=== PATIENT | female | born 1965 | race Asian ===

== ENCOUNTER 2024-01-17 12:25 | Inpatient (IN) | payer OTHER, SELFPAY ==
--- OUTSIDE RECORDS SUMMARY | 2024-01-17 12:28 | XMS_ITS ---
Author Organization [facility] Address [address] [place] [id number] Care Team Providers Care Cad Manager Name Role Phone Tod Sheila Primary Care Provider [phone] Opal Gramajo Unavailable [phone] REASON FOR VISIT Outreach: ER Social History Sex Assigned At : Social History Observation Description Sex Assigned At Female Encounters Encounter Location Date Provider Diagnosis [address] [id number] 01/16/2024 Sheila Baron Plan Of Treatment Next Appt Details Provider Name:Marilyn Elizalde, 01/25/2024 09:30:00 AM, [address] [place] [address], [phone], Provider Name:Sheila Baron, 11:30:00 AM, [address] [place] [address], [phone], Provider Name:Sheila Baron, 11:30:00 AM, [address] [place] [address], [phone], Provider Name:Rogerio Alford, 06/16/2024 10:00:00 AM, [address] [place] [address], [phone], Progress Notes * BASILIO LOOB:1965 (58 yo F)Acc No.[id number]:01/16/2024 Patient:?YARITZA LO :1965???Age:58 Y???Sex:Female Address:[address] [place] [address], [facility], [place], [address] * * Date:?
--- OUTSIDE RECORDS SUMMARY | 2024-01-17 12:29 | XMS_ITS ---
Author Organization [facility] Address [address], [place] [id number] Care Team Providers Care Instrumentation Designer Name Role Phone Sheila Baron Primary Care Provider Opal Gramajo Unavailable [phone] Tonio Marilyn Unavailable [phone] Allergies No Known Allergies REASON FOR VISIT 2 wk f/u Medications Medication SIG (Take, Route, Frequency, Duration) Notes Start Date End Date Status capsaicin topical 0.025% 1 kym applied topically 3 times a day 11/03/2013 Unknown escitalopram 5 mg 1 tab(s) orally once a day for 30 days 01/09/2024 Active Calcium + Vitamin D 600mg/400 units 1 tab po BID (use after meals) Unknown Tums 500 mg 1 tab(s) chewed once or twice a day 12/05/2017 Unknown triamcinolone topical 0.1% 1 kym applied topically 3 times a day 09/06/2015 Unknown Z-david 5 days (Azithromycin) 2 tabs day#1, then 1 tab daily days #2-5 PO for 5 days 04/11/2021 Not-Taking mirtazapine 7.5 mg 1 tab(s) orally once a day (at bedtime) for 90 days 09/22/2021 Not-Taking Lidocaine Hydrochloride, Topical 5% 1 kym applied topically 3 times a day 07/06/2014 Unknown Tussin DM 20 mg-200 mg/10 mL 10 mL orally every 6 hours 04/11/2021 Not-Taking Abilify 5 mg 1 tab(s) orally once a day for 30 days Active omeprazole 20 mg 1 cap(s) orally Jose Ramon y for 90 days Active Artificial Tears preserved 1 gtt in each eye 4 times a day Active TraZODone Hydrochloride 50 mg 1 tab(s) orally daily at bedtime for 90 days Not-Takin g FLUoxetine 20 mg 1 cap(s) orally once a day for 90 days Not-Taking calcium-vitamin D 600 mg-10 mcg 1 tab(s) orally twice a day for 90 days Active Vitamin D3 25 mcg 1 cap(s) orally once a day for 90 days 05/15/2022 Active Loratadine-D 24 Hour 10 mg-240 mg 1 tab(s) orally once a day 04/11/2021 Active acetaminophen 500 mg 2 tab(s) orally ricco ry 6 hours, prn Active multivitamin Multiple Vitamins 1 tab(s) orally once a day for 90 days 11/17/2013 Active Fish Oil 1000 mg 1 cap(s) orally once a day for 90 days 11/14/2021 Active ocular lubricant - 1 kym in each affect ed eye 4 times a day 07/20/2022 Active Social History Sex Assigned At : Social History Observation Description Sex Assigned At Female Encounters Encounter Location Date Provider Diagnosis [address] [id number] 01/09/2024 Marilyn Elizalde Adjustment disorder with mixed anxiety and depressed mood F43.23 Assessments Encounter Date Diagnosis (ICD Code) Assessment Notes Treatment Notes Treatment Clinical Notes 01/09/2024 Adjustment disorder with mixed anxiety and depressed mood (ICD-10 - F43.23) will increase abilify from 4 to 5mg will start lexapro 5mg daily for mood Risks vs benefits discussed, patient expressed verbal understanding and is in agreement with treatment plan. Plan Of Treatment Medication Medication Name Sig Start Date Stop Date Notes escitalopram 5 mg 1 tab(s) orally once a day for 30 days 1 03/11/2023 Abilify 5 mg 1 tab(s) orally once a day for 30 days Treatment Notes Assessment Notes Adjustment disorder with mix ed anxiety and depressed mood will increase abilify from 4 to 5mg will start lexapro 5mg daily for mood Risks vs benefits discussed, patient expressed verbal understanding and is in agreement with treatment plan. Next Appt Details Follow Up: 2 Weeks, Reason: Provider Name:Marilyn Elizalde, 01/25/2024 09:30:00 AM, [address] [place] [address], [phone], Provider Name:Sheila Baron, 11:30:00 AM, [address] [place] [address], [phone], Provider Name:Sheila Baron, 11:30:00 AM, [address] [place] [address], [id number], Provider Name:Rogerio Alford, 06/16/2024 10:00:00 AM, [address] [place] [address], [phone], Progress Notes * BASILIO LOOB:1965 (58 yo F)Acc No.[id number]:01/09/2024 Telehealth Patient:?YARITZA LO ??External /[id number]* Provider:?Marilyn Elizalde Mariely CHIEF ESTIMATOR-BC :1965???Age:58 Y???Sex:Female D ate:01/09/2024 ?[facility]#:[id number] Address:[address] [place], [place] [id number] Pcp:Sheila Baron Patient's Default Facility:[facility] Subjective: * Chief Complaints: * ???1. 2 wk f/u. * HPI: ???Follow-up:? Patient is a 58-year old Toisanese-speaking female presenting for psychiatric f/u with chief concerns of low mood. Referred by PCP, Sheila Baron NP. Previously?seen by this clinician in 2021 for depressive sx's. 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 ???Past Psychiatric History:?previously seen by this clinician in 2021 inadequate trials of mirtazapine and fluoxetine. ???Family and Social History::? Patient is currently living with her . She has 1 son in [place] and 2 daughters here in their 30s. She has 2 grandchildren, oldest is 9 yrs. Pt has multiple siblings living in [place], unable to describe further details Pt has some relatives in the area- sister in law Came to [place] over 10 yrs ago, has [employer] Occupation: unemployed Education: unknown Source of support: none [employer]itan: none Denied any history of emotional, sexual, or physical abuse. ???Substance Abuse::?Is alcohol and/or drugs currently problem for patient?Substance abuse problem??No.? Denied any caffeine, alcohol, tobacco, marijuana, or illicit substance use. ???Medical History:? none. * ROS:?ROS Behavioral Health:?Constitutional?none.?Eyes?none.?Ears, Nose, Mouth, & T hroat?none.?Cardiovascular?none.?Respiratory?none.?Genitourinary?none.?Skin?none .?Endocrine?none.?Hematologic/Lymphatic?no ne.?Allergic/Immunologic?none.?Neurological?none.?Psychiatric?see HPI.?Musculoskeletal?none.? 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 * Medications:?Taking Abilify 2 mg tablet 1 tab(s) orally once a day , Taking ocular lubricant - gel 1 kym in each affected eye 4 times a day , Taking Loratadine-D 24 Hour 10 mg-240 mg tablet, extended release 1 tab(s) orally once a day , Taking Vitamin D3 25 mcg capsule 1 cap(s) orally once a day , Taking multivitamin Multiple Vitamins tablet 1 tab(s) orally once a day , Taking acetaminophen 500 mg tablet 2 tab(s) orally every 6 hours, prn , Taking Fish Oil 1000 mg capsule 1 cap(s) orally once a day , Taking calcium-vitamin D 600 mg-10 mcg tablet 1 tab(s) orally twice a day , Taking Artificial Tears preserved solution 1 gtt in each eye 4 times a day , Taking omeprazole 20 mg delayed release capsule 1 cap(s) orally Daily , Not- Taking FLUoxetine 20 mg capsule 1 cap(s) orally once a day , Not-Taking TraZODone Hydrochloride 50 mg tablet 1 tab(s) orally daily at bedtime , Not-Taking mirtazapine 7.5 mg tablet 1 tab(s) orally once a day (at bedtime) , Not-Taking Z-david 5 days (Azithromycin) 250mg 2 tabs day#1, then 1 tab daily days #2-5 PO , Not-Taking Tussin DM 20 mg-200 mg/10 mL liquid 10 mL orally every 6 hours , Unknown Lidocaine Hydrochloride, Topical 5% ointment 1 kym applied topically 3 times a day , Unknown capsaicin topical 0.025% cream 1 kym applied topically 3 times a day , Unknown triamcinolone topical 0.1% cream 1 kym applied topically 3 times a day , Unknown Tums 500 mg tablet, chewable 1 tab(s) chewed once or twice a day , Unknown Calcium + Vitamin D 600mg/400 units tablet 1 tab po BID (use after meals) , Medication List reviewed and reconciled with the patient * Allergies:?N.K.D.A. Objective: * Vitals:? * Examination: ???Mental Status Exam: ?BEHAVIOR:? appropriate.?DISORIENTATION:? none.?MOOD/AFFECT:?dysthymic.?SPEECH:?normal pace, normal volume.?THOUGHT PROCESSES:? perseverative.?THOUGHT CONTENT:?appropriate.?INSIGHT/JUDGEMENT? minimal.?MEMORY PROBLEMS:?intact.?SUICIDAL IDEATION:? denied.?HOMICIDAL IDEATION:? denied.?Telehealth Virtual Visit: ?Telehealth Patient Virtual Visit?.?Attestation Statement? This is health visit performed via telephone, using InVision, at [facility]. The patient was treated with the same standard of care as an in-person visit, and was informed of their right to see a clinician in person in the event of an emergency or if otherwise needed.I introduced and identified myself, received verbal consent from the patient to proceed with this telephone visit and made the patient aware that the same confidentiality and information security risk analyst practices apply. .? * Physical Examination:? Assessment: * Assessment: 1.?Adjustment disorder with mixed anxiety and depressed mood - F43.23 (Primary)??? Patient is a 58-year old Osvaldo sanese-speaking female presenting for psychiatric f/u with chief concerns of low mood. Referred by PCP, Sheila Baron NP. Previously seen by this clinician in 2021 for depressive sx's. Patient has no known biological predisposition to mental illness. Pt presents to again for depressive sx's, unclear what precipitated this episode. Today pt continues to endorse depressive symptoms, has not had adequate trial of antidepressant medication. Ongoing stressors include lack of daily structure. Protective factors include supportive family and patient's willingness to engage with clinician. Barriers to treatment: Low literacy on mental illness Risk factors: hx of depression Strengths: Motivated to seek help Weaknesses: Acculturation issues Plan: * Treatment: * Procedure Codes:?G0470 (TEL) [facility] visit, mental health, est pat, Modifiers: 95 , 22627 (TEL) Med Mgt 20-29 min VV, Modifiers: 95 * Follow Up:?2 Weeks * Billing Information: * Visit Code:? * Procedure Codes:? G0470 (TEL) [facility] visit, mental health, est pat. Modifiers: 95 90998 (TEL) Med Mgt 20-29 min VV. Modifiers: 95 * Sign off status: Completed true * Provider:?Marilyn Elizalde [facility] ISAIAH-BC Date:? 01/09/2024 Generated for Dee fatima/Ashley/eTransmitting on:?01/17/2024 12:29 PM EST History and Physical Notes * HPI (History of Present Illness) Category Sub-Category Detail Notes Substance Abuse: Is alcohol and/or dr pearl currently problem for patient Substance abuse problem?: No Examination Category Sub-Category Detail Notes Mental Status Exam APPEARANCE: BEHAVIOR: appropriate INSIGHT/JUDGEMENT minimal MOOD/AFFECT: dysthymic SPEECH: normal pace, normal volume THOUGHT PROCESSES: perseverative MEMORY PROBLEMS: intact THOUGHT CONTENT: appropriate DISORIENTATION: none SUICIDAL IDEATION: denied HOMICIDAL IDEATION: denied Telehealth Virtual Visit Telehealth Bia ent Virtual Visit Patient Name, , and and ID Verified: Yes Provider Disclosed and Validated Identit y and Credentials: Yes Reviewed Relevant medical History With P atient: Yes Verified Ability To Deliver Appropriate Standard of Care: Yes Informed Patient of Any Relevant Privacy Considerations: Yes Followed Consent and Patient Information Protocols: Yes Location Verified: Yes ?Provider Location: [address] ?Patient Location: Home Informed Patient of Option t o See in-person Clinician as Needed or in-Case of Emergency: Yes Attestation Statement This is health visit performed via telephone, using InVision, at [facility]. The patient was treated with the same standard of care as an in-person visit, and was informed of their right to see a clinician in person in the event of an emergency or if otherwise needed. I introduced and identified myself, received verbal consent from the patient to proceed with this telephone visit and made the patient aware that the same confidentiality and information security risk analyst practices apply.
--- OUTSIDE RECORDS SUMMARY | 2024-01-17 12:29 | XMS_ITS ---
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 4 times a day Active omeprazole 20 mg 1 cap(s) orally Jose Ramon y for 90 days Active FLUoxetine 20 mg 1 cap(s) orally once a day for 90 days Not-Taking Fish Oil 1000 mg 1 cap(s) orally once a day for 90 days 11/14/2021 Active calcium-vitamin D 600 mg-10 mcg 1 tab(s) orally twice a day for 90 days Active multivitamin Multiple Vitamins 1 tab(s) orally once a day for 90 days 11/17/2013 Active acetaminophen 500 mg 2 tab(s) orally ricco ry 6 hours, prn Active ocular lubricant - 1 kym in each affect ed eye 4 times a day 07/20/2022 Active Loratadine-D 24 Hour 10 mg-240 mg 1 tab(s) orally once a day 04/11/2021 Active Vitamin D3 25 mcg 1 cap(s) orally once a day for 90 days 05/15/2022 Active Abilify 5 mg 1 tab(s) orally once a day for 30 days Active escitalopram 5 mg 1 tab(s) orally once a day for 30 days 01/09/2024 Active triamcinolone topical 0.1% 1 kym applied topically 3 times a day 09/06/2015 Unknown Tums 500 mg 1 tab(s) chewed once or twice a day 12/05/2017 Unknown Calcium + Vitamin D 600mg/400 units 1 tab po BID (use after meals) Unknown capsaicin topical 0.025% 1 kym applied topically 3 times a day 11/03/2013 Unknown mirtazapine 7.5 mg 1 tab(s) orally once a day (at bedtime) for 90 days 09/22/2021 Not-Taking Z-david 5 days (Azithromycin) 2 tabs day#1, then 1 tab daily days #2-5 PO for 5 days 04/11/2021 Not-Taking Tussin DM 20 mg-200 mg/10 mL 10 mL orally every 6 hours 04/11/2021 Not-Taking Lidocaine Hydrochloride, Topical 5% 1 kym applied topically 3 times a day 07/06/2014 Unknown TraZODone Hydrochloride 50 mg 1 tab(s) orally daily at bedtime for 90 days Not-Takin g Social History Sex Assigned At : Social History Observation Description Sex Assigned At Female Encounters Encounter Location Date Provider Diagnosis [address] [id number] 01/15/2024 Sheila Baron Pain in unspecified knee M25.569 and Other fatigue R53.83 Assessments Encounter Date Diagnosis (ICD Code) Assessment Notes Treatment Notes Treatment Clinical Notes 01/15/2024 Pain in unspecified knee (ICD-10 - M25.569) Patient again declines to come in for examination in person. 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 Discussed treatment with PT for knee strengthening exercises and gait retraining; patient declines stating that she does not have the ability to do PT. Discussed option to see ortho for consult; patient declines stating at she does not know where the department or hospital is although she went for ER. Patient is hesistant towards treatment option plans. Discussed to rtc if she does want treatment. 01/15/2024 Other fatigue (ICD-10 - R53.83) Again fatigue most likely from psych etiology. Reassured patient that lab findings were normal and examination was normal in ER. Recommend to continue BH consult. Pending f/u 01/25/2024. Pending Cardiology consult 02/202401/15/2024 Other Recommended deshaun t patient include family = husbsand and daughter in on her care as she is refusing everything d/t limited knowledge of the hospital areas and keeps stating that she is unable to go by herself d/t fatigue. Plan Of Treatment Treatment Notes Assessment Notes Pain in unspecified knee Patient again d eclines to come in for examination in person. 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 Discussed treatment with PT for knee strengthening exercises and gait retraining; patient declines stating that she does not have the ability to do PT. Discussed option to see ortho for consult; patient declines stating at she does not know where the department or hospital is although she went for ER. Patient is hesistant towards treatment option plans. Discussed to rtc if she does want treatment. Other fatigue Again fatigue most l ikely from psych etiology. Reassured patient that lab findings were normal and examination was normal in ER. Recommend to continue BH consult. Pending f/u 01/25/2024. Pending Cardiology consult 02/2024 Other Recommended that pat ient include family = husbsand and daughter in on her care as she is refusing everything d/t limited knowledge of the hospital areas and keeps stating that she is unable to go by herself d/t fatigue. Next Appt Details Follow Up: prn, Reason: Provider Name:Marilyn Elizalde, 01/25/2024 09:30:00 AM, [address] [place] [address], [phone], Provider Name:Sheila Baron, 11:30:00 AM, [address] [place] [address], [phone], Provider Name:Sheila Baron, 11:30:00 AM, [address] [place] [address], [phone], Provider Name:Rogerio Alford, 06/16/2024 10:00:00 AM, [address] [place] [address], [phone], Progress Notes * BASILIO LOOB:1965 (58 yo F)Acc No.[id number]:01/15/2024 Telehealth Patient:?YARITZA LO ??External /[id number]* Provider:?Sheila Baron NP :1965???Age:58 Y???Sex:Female D ate:01/15/2024 ?CHN#:[id number] Address:[address] [place], [place] [id number] Patient's Default Facility:[facility] Subjective: * Chief Complaints: * ???Weakness * HPI: ???General Visit:? 58 y/o female presents today with ongoing fatigue/weakness. Patient with severe MDD, insomnia previously presented multiple times with similar symptoms resulting in pending cardiology consultation 02/2024. She reports that symptoms caused recent [facility] ER 01/14/2024 with unremarkable workup. She states that she has ongoing weakness and repeatedly states that she feels that she does not have circulation throughout her body. She reports that there is pain in the bilateral knees causing gait difficulties; per ER, she has full strength throughout and ambulates without difficulty. * ROS:?CONSTITUTIONAL: No fever, chills, weakness, fatigue, or weight loss. Eyes: No visual loss, blurred vision, double vision or yellow sclerae. ENT: No hearing loss, sneezing, congestion, runny nose or sore throat. CARDIOVASCULAR: No chest pain, chest pressure or chest discomfort. No palpitations or edema. RESPIRATORY: No shortness of breath, cough or sputum. GASTROINTESTINAL: No anorexia, nausea, vomiting or diarrhea. No abdominal pain or blood. GENITOURINARY: No dysuria, frequency, or urgency. MUSCULOSKELETAL: No muscle, back pain, joint pain or stiffness. NEUROLOGICAL: No weakness, dizziness, focal neurological change or headache. PSYCHIATRIC: No history of depression or anxiety. ENDOCRINOLOGIC: No reports of sweating, cold or heat intolerance. No polyuria or polydipsia. HEMATOLOGIC: No anemia, bleeding or bruising. SKIN: No rash or itching. * Medical History:? * Surgical History:? * Hospitalization/Major Diagno stic Procedure:? * Medications:?TakingAbilify 5 mg tablet 1 tab(s) orally once a day escitalopram 5 mg tablet 1 tab(s) orally once a day ocular lubricant - gel 1 kym in each affected eye 4 times a day Loratadine-D 24 Hour 10 mg-240 mg tablet, extended release 1 tab(s) orally once a day Vitamin D3 25 mcg capsule 1 cap(s) orally once a day multivitamin Multiple Vitamins tablet 1 tab(s) orally once a day acetaminophen 500 mg tablet 2 tab(s) orally every 6 hours, prn Fish Oil 1000 mg capsule 1 cap(s) orally once a day calcium-vitamin D 600 mg-10 mcg tablet 1 tab(s) orally twice a day Artificial Tears preserved solution 1 gtt in each eye 4 times a day omeprazole 20 mg delayed release capsule 1 cap(s) orally Daily Taking Abilify 5 mg tablet 1 tab(s) orally once a day Taking escitalopram 5 mg tablet 1 tab(s) orally once a day Taking ocular lubricant - gel 1 kym in each affected eye 4 times a day Taking Loratadine-D 24 Hour 10 mg- 240 mg tablet, extended release 1 tab(s) orally once a day Taking Vitamin D3 25 mcg capsule 1 cap(s) orally once a day Taking multivitamin Multiple Vitamins tablet 1 tab(s) orally once a day Taking acetaminophen 500 mg tablet 2 tab(s) orally every 6 hours, prn Taking Fish Oil 1000 mg capsule 1 cap(s) orally once a day Taking calcium- vitamin D 600 mg-10 mcg tablet 1 tab(s) orally twice a day Taking Artificial Tears preserved solution 1 gtt in each eye 4 times a day Taking omeprazole 20 mg delayed release capsule 1 cap(s) orally Daily Not-TakingFLUoxetine 20 mg capsule 1 cap(s) orally once a day TraZODone Hydrochloride 50 mg tablet 1 tab(s) orally daily at bedtime mirtazapine 7.5 mg tablet 1 tab(s) orally once a day (at bedtime) Z-david 5 days (Azithromycin) 250mg 2 tabs day#1, then 1 tab daily days #2-5 PO Tussin DM 20 mg-200 mg/10 mL liquid 10 mL orally every 6 hours Not-Taking FLUoxetine 20 mg capsule 1 cap(s) orally once a day Not-Taking TraZODone Hydrochloride 50 mg tablet 1 tab(s) orally daily at bedtime Not-Taking mirtazapine 7.5 mg tablet 1 tab(s) orally once a day (at bedtime) Not-Taking Z-david 5 days (Azithromycin) 250mg 2 tabs day#1, then 1 tab daily days #2-5 PO Not-Taking Tussin DM 20 mg-200 mg/10 mL liquid 10 mL orally every 6 hours UnknownLidocaine Hydrochloride, Topical 5% ointment 1 kym applied topically 3 times a day capsaicin topical 0.025% cream 1 kym applied topically 3 times a day triamcinolone topical 0.1% cream 1 kym applied topically 3 times a day Tums 500 mg tablet, chewable 1 tab(s) chewed once or twice a day Calcium + Vitamin D 600mg/400 units tablet 1 tab po BID (use after meals) Unknown Lidocaine Hydrochloride, Topical 5% ointment 1 kym applied topically 3 times a day Unknown capsaicin topical 0.025% cream 1 kym applied topically 3 times a day Unknown triamcinolone topical 0.1% cream 1 kym applied topically 3 times a day Unknown Tums 500 mg tablet, chewable 1 tab(s) chewed once or twice a day Unknown Calcium + Vitamin D 600mg/400 units tablet 1 tab po BID (use after meals) Objective: * Vitals:? * Examination: ???Telehealth Virtual Visit: ?Telehealth Patient Virtual Visit?.?Attestation Statement? This is health visit performed via telephone, using [facility], at [facility]. The patient was treated with the same standard of care as an in-person visit, and was informed of their right to see a clinician in person in the event of an emergency or if otherwise needed.I introduced and identified myself, received verbal consent from the patient to proceed with this telephone visit and made the patient aware that the same confidentiality and public information director practices apply. .? * Physical Examination:? Assessment: * Assessment: 1.?Pain in unspecified knee - M25.569 (Primary)???2.?Other fatigue - R53.83??? Plan: * Treatment: 2.?Other fatigue? Notes: Again fatigue most likely from psych etiology. Reassured patient that lab findings were normal and examination was normal in ER. Recommend to continue BH consult. Pending f/u 01/25/2024. Pending Cardiology consult 02/2024?? 3.?Others? Notes: Recommended that patient include family = husbsand and daughter in on her care as she is refusing everything d/t limited knowledge of the hospital areas and keeps stating that she is unable to go by herself d/t fatigue. ?? * Procedure Codes:?T1015 [facility] Vst/Enc All-Inclusive, Modifiers: 93 * Follow Up:?prn * Billing Information: * Visit Code:? 67341 Est Pat Limited VV. Modifiers: 95 * Procedure Codes:? T1015 [facility] Vst/Enc All-Inclusive. Modifiers: 93 * Sign off status: Completed true * Provider:?Sheila Baron NP Date:?01/15/2024 Generated for Dee fatima/Ashley/Loren on:?01/17/2024 12:28 PM EST History and Physical Notes * Examination Category Sub-Category Detail Notes Telehealth Virtual Visit Telehealth Bia ent Virtual Visit Patient Name, , and and ID Verified: Yes Provider Disclosed and Validated Identit y and Credentials: Yes Reviewed Relevant medical History With P atient: Yes Verified Ability To Deliver Appropriate Standard of Care: Yes Informed Patient of Any Relevant Privacy Considerations: Yes Followed Consent and Patient Information Protocols: Yes Location Verified: Yes ?Provider Location: [address] ?Patient Location: Home Informed Patient of Option t o See in-person Clinician as Needed or in-Case of Emergency: Yes Attestation Statement This is health visit performed via telephone, using [facility], at [facility]. The patient was treated with the same standard of care as an in-person visit, and was informed of their right to see a clinician in person in the event of an emergency or if otherwise needed. I introduced and identified myself, received verbal consent from the patient to proceed with this telephone visit and made the patient aware that the same confidentiality and public information director practices apply.
--- OUTSIDE RECORDS SUMMARY | 2024-01-17 12:29 | XMS_ITS | Patient Health Record ---
Author Organization [facility] Address [address], [place] [id number] Care Team Providers Care Resource Analyst Name Role Phone Tod Denise Primary Care Provider RegiOpal blanc Unavailable [phone] Stevenson Ferrera Unavailable [phone] Leny Bright Unavailable [phone] Dakota Nieto Unavailable [phone] DR Rogerio Alford Unavailable [phone] Marilyn Elizalde Unavailable [phone] Forest Kumar Unavailable [phone] Demarcus Multani Unavailable [phone] Allergies No Known Allergies Results Component Value Reference Range Notes H. PYLORI ANTIGEN, STOOL Reviewed date:08/27/2023 01:03:15 PM Interpretation: Performing Lab: Notes/Report: Copied To: , Ordering Provider: [place] [address] [address] [facility] Test performed by [employer] lateral flow assay. HELICO PYLORI AG FECAL Negative Negative Antim icrobials, proton pump inhibitors and bismuth preparations may suppress detection of H. pylori antigen for up to 2 weeks. If applicable test should be repeated on a new specimen 2 weeks after discontinuation of treatment. Note See Below For Report Reason For Referral Reason depression and insom jaxon Diagnosis 1 Unspecified mood [af fective] disorder (F39) Referral Organization [facility] Referring Provider First Name Dakota Referring Provider Last Name Gerson Referring Provider Speciality Internal M edicine Referred Provider [facility] Referred Provider Specialty Behavioral H ealth General Notes Yanet Hutchinson 05/16/2023 1 1:56:13 AM >vm left for pt to call back and schedule an appt, JesseniaJemalBibiana 05/22/2023 04:48:50 PM >pt scheduled eval with Dr. Multani on 05/29 at 3:00pm in [place], Yanet Hutchinson 07/20/2023 10:54:08 AM >pt cancelled eval and saod will call back to r/s, no call back from pt. no services provided. referral closed Referral Priority Routine Referral Appointment Date 05/30/2023 Reason severe MDD; PHQ9 sco re 21 cantonese speaking Diagnosis 1 Major depressive dis order, recurrent severe without psychotic features (F33.2) Referral Organization [facility] Referring Provider First Name Denise Referring Provider Last Name Tod Referring Provider Speciality Nurse Prac kadi Referred Provider [facility] Referred Provider [facility] General Notes Yanet Hutchinson 08/08/2023 1 2:09:22 PM >eval carmen'd with Marilyn on 08/14 at 3:30pm in [place], Yanet Hutchinson 10/24/2023 04:38:03 PM >pt saw Marilyn on 08/14 at 3:30pm in [place]. referral closed Referral Priority Routine Referral Appointment Date 08/15/2023 Reason ongoing chest discom fort in setting of insomnia and MDD requesting consultation cantonese speaking Diagnosis 1 Chest pain, unspecif ied (R07.9) Referral Organization [facility] Referring Provider First Name Denise Referring Provider Last Name Tod Referring Provider Speciality Nurse Fabiola wallis Referred Provider [facility] Cardiology ([facility]) Referred Provider Specialty Cardiology General Notes Denise Terrazas 06:20:26 PM >please schedule at [facility] any time any day, Sofiya Lr 12/19/2023 08:52:57 AM > , Sofiya Lr 12/20/2023 03:56:38 PM >Cardiology is booked on 02/15/2024 at 11:00 am with . Located at [facility] 6th floor. Pt informed by letter sent., MV is booked on 02/29/2024 at 11:30 am with ISAIAH Terrazas. Clinical Notes Sofiya Lr 12/19/2023 08:53:59 AM >faxed Referral Priority Routine Referral Appointment Date 02/15/2024 Medications Medication SIG (Take, Route, Frequency, Duration) Notes Start Date End Date Status Artificial Tears preserved 1 gtt in each eye 4 times a day Active omeprazole 20 mg 1 cap(s) orally Jose Ramon y for 90 days Active Abilify 5 mg 1 tab(s) orally once a day for 30 days Active FLUoxetine 20 mg 1 cap(s) orally once a day for 90 days Not-Taking escitalopram 5 mg 1 tab(s) orally once a day for 30 days 01/09/2024 Active TraZODone Hydrochloride 50 mg 1 tab(s) orally daily at bedtime for 90 days Not-Takin g multivitamin Multiple Vitamins 1 tab(s) orally once a day for 90 days 11/17/2013 Active acetaminophen 500 mg 2 tab(s) orally ricco ry 6 hours, prn Active Fish Oil 1000 mg 1 cap(s) orally once a day for 90 days 11/14/2021 Active calcium-vitamin D 600 mg-10 mcg 1 tab(s) orally twice a day for 90 days Active capsaicin topical 0.025% 1 kym applied topically 3 times a day 11/03/2013 Unknown triamcinolone topical 0.1% 1 kym applied topically 3 times a day 09/06/2015 Unknown Tums 500 mg 1 tab(s) chewed once or twice a day 12/05/2017 Unknown Calcium + Vitamin D 600mg/400 units 1 tab po BID (use after meals) Unknown ocular lubricant - 1 kym in each affect ed eye 4 times a day 07/20/2022 Active mirtazapine 7.5 mg 1 tab(s) orally once a day (at bedtime) for 90 days 09/22/2021 Not-Taking Loratadine-D 24 Hour 10 mg-240 mg 1 tab(s) orally once a day 04/11/2021 Active Z-david 5 days (Azithromycin) 2 tabs day#1, then 1 tab daily days #2-5 PO for 5 days 04/11/2021 Not-Taking Vitamin D3 25 mcg 1 cap(s) orally once a day for 90 days 05/15/2022 Active Tussin DM 20 mg-200 mg/10 mL 10 mL orally every 6 hours 04/11/2021 Not-Taking Lidocaine Hydrochloride, Topical 5% 1 kym applied topically 3 times a day 07/06/2014 Unknown Immunizations Vaccine Route Administration Date Status Comme nts Covid19 Moderna Booster IM Intramuscular 02/11/2021 Admini stered Covid19 Moderna Booster IM Intramuscular 08/23/2021 Admini stered Covid19 Moderna #2 IM Intramuscular 07/16/2020 Administere d Covid19 Moderna #1 IM Intramuscular 06/18/2020 Administere d Influenza IM Intramuscular 11/01/2008 Administered Influenza-P IM Intramuscular 12/22/2013 Administered MMR Unknown 05/12/2008 Administered Td Unknown 05/12/2008 Administered Td(#2) IM Intramuscular 09/08/2008 Administered Td(#3) IM Intramuscular 03/10/2009 Administered Varivax Unknown 05/12/2008 Administered Social History Tobacco Use: Social History Observation Description Date Details (start date - stop date) Never Smoker NA - NA Sex Assigned At : Social History Observation Description Sex Assigned At Female Tobacco use: Question Answer Notes do you smoke: nonsmoker Fall risk (65+): Question Answer Notes any falls in the past 12 months?: Yes Sexually Hx (16-24): Question Answer Notes Had Sex in the Past 12 months? 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) Active confirmed Problem Hyperlipidemia (74108425) Hyperlipidemia, unspecified (E78.5) Active confirmed Problem Severe recurrent major depression without psychotic features (92110775) Major depressive disorder, recurrent severe without psychotic features (F33.2) Active confirmed Problem Adjustment disorder with mixed anxiety and depressed mood (747155605) Adjustment disorder with mixed anxiety and depressed mood (F43.23) Active confirmed Problem Insomnia (855880143) Insomnia, unspecified (G47.00) Active confirmed Problem Tear film insufficiency (13571688) Dry eye syndrome of bilateral lacrimal glands (H04.123) Active confirmed Problem Bilateral age-related cataract (35778088415872715 ) Combined forms of age-related cataract, bilateral (H25.813) Active confirmed Problem Presbyopia (57788847) Presbyopia (H52.4) Active confirmed Problem Allergic rhinitis (36943500) Allergic rhinitis, unspecified (J30.9) Active confirmed Problem Gastro-esophageal reflux disease without esophagitis (319970767) Gastro-esophage al reflux disease without esophagitis (K21.9) Active confirmed Problem Arthropathy (845731729) Arthropathy, unspecified (M12.9) Active confirmed Vital Signs Heart Rate 105 /min 09/24/2023 Temperature 98.1 degrees Fahrenheit 09/24/2023 Blood pressure diastolic 88 mm Hg 09/24/2023 Height 61.02 in 09/24/2023 Blood pressure systolic 122 mm Hg 09/24/2023 Weight 117 lbs 09/24/2023 BMI 22.09 kg/m2 09/24/2023 Encounters Encounter Location Date Provider Diagnosis Q [address] [id number] 05/22/2023 Leny Bright H [address] [id number] 06/11/2023 Rogerio Bonilla [address] [id number] 01/16/2024 Denise Terrazas H [address] [id number] 09/12/2023 Marilyn Elizalde Q [address] [id number] 10/30/2023 Denise Terrazas Q [address] [id number] 11/20/2023 Denise Terrazas S [address] [id number] 12/10/2023 Marilyn Elizalde Q [address] [id number] 12/21/2023 Denise Terrazas S [address] [id number] 12/28/2023 Marilyn Elizalde H [address] [id number] 05/23/2023 Rogerio Alford Encounter for examination of eyes and vision with abnormal findings Z01.01 ; Combined forms of age-related cataract, bilateral H25.813 ; Dry eye syndrome of bilateral lacrimal glands H04.123 ; Hypermetropia, bilateral H52.03 and Presbyopia H52.[address] [id number] 05/22/2023 Nha Jaylene Deangelo Dysthymic disorder F34.[address] [id number] 08/01/2023 Rogerio Alford Encounter for examination of eyes and vision with abnormal findings Z01.01 ; Combined forms of age-related cataract, bilateral H25.813 ; Dry eye syndrome of bilateral lacrimal glands H04.123 ; Hypermetropia, bilateral H52.03 and Presbyopia H52.[address] [id number] 08/15/2023 Marilyn Tonio Adjustment disorder with mixed anxiety and depressed mood F43.[address] [id number] 06/13/2023 Jasmynmartín Alford Presbyopia H52.[address] [id number] 09/24/2023 Denise Tod Adjustment disorder with mixed anxiety and depressed mood F43.23 and Gastro-esophageal reflux disease without esophagitis K21.[address] [id number] 07/31/2023 Denise Tod Major depressive disorder, recurrent severe without psychotic features F33.2 and Arthropathy, unspecified M12.[address] [id number] 10/18/2023 Marilyn Tonio Adjustment disorder with mixed anxiety and depressed mood F43.[address] [id number] 11/21/2023 Marilyn Tonio Adjustment disorder with mixed anxiety and depressed mood F43.[address] [id number] 08/27/2023 Denise Tod Major depressive disorder, recurrent severe without psychotic features F33.2 and Gastro-esophageal reflux disease without esophagitis K21.[address] [id number] 12/10/2023 Marilyn Tonio Adjustment disorder with mixed anxiety and depressed mood F43.[address] [id number] 11/02/2023 Denise Tod Major depressive disorder, recurrent severe without psychotic features F33.2 and Epigastric pain R10.[address] [id number] 11/06/2023 Marilyn Tonio Adjustment disorder with mixed anxiety and depressed mood F43.[address] [id number] 12/27/2023 Marilyn Tonio Adjustment disorder with mixed anxiety and depressed mood F43.[address] [id number] 01/09/2024 Marilyn Tonio Adjustment disorder with mixed anxiety and depressed mood F43.[address] [id number] 01/15/2024 Denise Tod Pain in unspecified knee M25.569 and Other fatigue R53.[address] [id number] 03/03/2023 Minping Ferrera Vomiting, unspecified R11.[address] [id number] 03/05/2023 Yuheng Gerson Arthropathy, unspecified M12.9 ; Major depressive disorder, recurrent, mild F33.0 and Insomnia, unspecified G47.[address] [id number] 03/10/2023 Yanan Kumar Arthropathy, unspecified M12.[address] [id number] 05/07/2023 Yuheng Gerson Arthropathy, unspecified M12.9 ; Insomnia, unspecified G47.00 ; Unspecified mood [affective] disorder F39 and Hyperlipidemia, unspecified E78.[address] [id number] 08/13/2023 Denise Tod Epigastric pain R10.13 and Major depressive disorder, recurrent severe without psychotic features F33.[address] [id number] 11/20/2023 Denise Tod Adjustment disorder with mixed anxiety and depressed mood F43.[address] [id number] 12/18/2023 Denise Tod Chest pain, unspecified R07.[address] [id number] 12/21/2023 Denise Tod Chest pain, unspecified R07.9 Assessments Encounter Date Diagnosis (ICD Code) Assessment Notes Treatment Notes Treatment Clinical Notes 03/03/2023 Vomiting, unspecified (ICD-10 - R11.10) oral fluid and electrolyte replacement, ER if worse vomiting on Tx 03/05/2023 Arthropathy, unspecified (ICD-10 - M12.9) 03/05/2023 Major depressive disorder, recurrent, mild (ICD-10 - F33.0) declined referral 03/10/2023 Arthropathy, unspecified (ICD-10 - M12.9) 05/07/2023 Insomnia, unspecified (ICD-10 - G47.00) 05/07/2023 Arthropathy, unspecified (ICD-10 - M12.9) declined [facility] referral 05/23/2023 Encounter for examination of eyes and vision with abnormal findings (ICD-10 - Z01.01) ocular health WNL. monitor 05/22/2023 Dysthymic disorder (ICD-10 - F34.1) will have staff to call to [facility] consult, pt will be notified, currently denies any SI 06/13/2023 Presbyopia (ICD-10 - H52.4) dispensed dist and near glasses 07/31/2023 Major depressive disorder, recurrent severe without psychotic features (ICD-10 - F33.2) 08/01/2023 Encounter for examination of eyes and vision with abnormal findings (ICD-10 - Z01.01) ocular health WNL. monitor 08/13/2023 Epigastric pain (ICD-10 - R10.13) Plans to r/o h pylori infection. Patient start omeprazole 20 mg daily after stool submission. f/u 2 weeks 08/15/2023 Adjustment disorder with mixed anxiety and depressed mood (ICD-10 - F43.23) Will increase mirtazapine from 15 to 22.5mg nightly for mood and sleep Risks vs benefits discussed, patient expressed verbal understanding and is in agreement with treatment plan. 08/27/2023 Major depressive disorder, recurrent severe without psychotic features (ICD-10 - F33.2) 10/18/2023 Adjustment disorder with mixed anxiety and depressed mood (ICD-10 - F43.23) Will continue mirtazapine 30mg nightly for mood and sleep as pt self increased dose provided psychoeducation regarding medication compliance Risks vs benefits discussed, patient expressed verbal understanding and is in agreement with treatment plan. 11/02/2023 Major depressive disorder, recurrent severe without psychotic features (ICD-10 - F33.2) 11/02/2023 Epigastric pain (ICD-10 - R10.13) 11/06/2023 Adjustment disorder with mixed anxiety and depressed mood (ICD-10 - F43.23) Will increase mirtazapine from 30 to 45mg nightly for mood and sleep discussed with pt that disability exception for citizenship test not appropriate at this time Risks vs benefits discussed, patient expressed verbal understanding and is in agreement with treatment plan. 11/20/2023 Adjustment disorder with mixed anxiety and depressed mood (ICD-10 - F43.23) adjusment disorder with suicidal ideations. Plans to reach out to for urgent consult. [facility] does not have definitive plans. 11/21/2023 Adjustment disorder with mixed anxiety and depressed mood (ICD-10 - F43.23) will start fluoxetine 10mg daily for mood provided psychoeducation regarding sleep hygiene as well as coping mechanisms Risks vs benefits discussed, patient expressed verbal understanding and is in agreement with treatment plan. total time spent with pt and reviewing relevant notes and labs: 35 min 12/10/2023 Adjustment disorder with mixed anxiety and depressed mood (ICD-10 - F43.23) will hold fluoxetine as pt self discontinued advised pt to restart mirtazapine 45mg for mood and sleep Risks vs benefits discussed, patient expressed verbal understanding and is in agreement with treatment plan. 12/27/2023 Adjustment disorder with mixed anxiety and depressed mood (ICD-10 - F43.23) will discontinue mirtazapine as pt self discontinued will start abilify 2mg for mood Risks vs benefits discussed, patient expressed verbal understanding and is in agreement with treatment plan. 12/18/2023 Chest pain, unspecified (ICD-10 - R07.9) Possible that chest pain secondary to psych. Patient to have workup with cardiology to r/o toher etiology. Patient to continue to monitor and continue f/u with 12/21/2023 Chest pain, unspecified (ICD-10 - R07.9) Patient declines to come in for evaluation. Discussed with patient that symptoms likely secondary to psych. Recommend ED evaluation; patient declines. ED precautions given. Recommend urgent psych f/u 01/09/2024 Adjustment disorder with mixed anxiety and depressed mood (ICD-10 - F43.23) will increase abilify from 4 to 5mg will start lexapro 5mg daily for mood Risks vs benefits discussed, patient expressed verbal understanding and is in agreement with treatment plan. 01/15/2024 Pain in unspecified knee (ICD-10 - [...] consult. Pending f/u 01/25/2024. Pending Cardiology consult 02/202409/24/2023 Adjustment disorder with mixed anxiety and depressed mood (ICD-10 - F43.23) Urged patient to f/u with [facility]; patient to reschedule. Recommend/lurged to comply with medication drections. Restated that patient should be taking mirtazpine 1.5 mg qhs 09/24/2023 Gastro-esophageal reflux disease without esophagitis (ICD-10 - K21.9) Patient to continue on omerpazole 20 mg daily 05/07/2023 Unspecified mood [affective] disorder (ICD-10 - F39) rec fu 08/27/2023 Gastro-esophageal reflux disease without esophagitis (ICD-10 - K21.9) 08/13/2023 Major depressive disorder, recurrent severe without psychotic features (ICD-10 - F33.2) Pending [facility] on 08/15/2023. Patient to continue on mirtazapine 15 mg qhs. 08/01/2023 Combined forms of age-related cataract, bilateral (ICD-10 - H25.813) 07/31/2023 Arthropathy, unspecified (ICD-10 - M12.9) 05/23/2023 Combined forms of age-related cataract, bilateral (ICD-10 - H25.813) 03/05/2023 Insomnia, unspecified (ICD-10 - G47.00) 05/07/2023 Hyperlipidemia, unspecified (ICD-10 - E78.5) 05/23/2023 Dry eye syndrome of bilateral lacrimal glands (ICD-10 - H04.123) Lower punctal plugs In, and resume WC bid and try different brand AT tid 08/01/2023 Dry eye syndrome of bilateral lacrimal glands (ICD-10 - H04.123) Lower punctal plugs In, and resume WC bid and try different brand AT tid 05/23/2023 Hypermetropia, bilateral (ICD-10 - H52.03) Mild hypperopia OU no glasses needed 08/01/2023 Hypermetropia, bilateral (ICD-10 - H52.03) Mild hypperopia OU no glasses needed 08/01/2023 Presbyopia (ICD-10 - H52.4) pt prefers 2 pairs MHG. monitor 05/23/2023 Presbyopia (ICD-10 - H52.4) pt prefers 2 pairs MHG. monitor 03/05/2023 Other Medication list reconciled. Patient has copy. 05/07/2023 Other Medication list reconciled. Patient has copy. 08/15/2023 Other Treatment plan: Addressed risk factors through psychoeducation . Preventative services needed? No Notes: Medication list reconciled. Patient has copy. Medication understanding/respons e to/barriers to adherence/OTC-herbal remedy use assessed & instructions given. , Potential drug interaction and side effects discussed with patient. Understands to call back immediately if any adverse reactions to medications. Confidentiality Reviewed: Y PCP will be contacted by today. Patient involved in treatment plan: Y Patient was informed of [facility]'s emergency/after hours phone # or call 911: Y Copy of Patient's Rights was given to patient: Nahomi. 01/15/2024 Other Recommended deshaun t patient include family = husbsand and daughter in on her care as she is refusing everything d/t limited knowledge of the hospital areas and keeps stating that she is unable to go by herself d/t fatigue. Plan Of Treatment Pending Test Test Name Order Date Bone density 11/06/2017 EKG 09/07/2014 Mammogram 11/25/2019 Gynecological Cytology (PAP) - APath 11/2012 Stress Echo 07/21/2022 Next Appt Details Provider Name:Marilyn Elizalde, 01/25/2024 09:30:00 AM, [address] [place] [address], [phone], Provider Name:Denise Terrazas, 11:30:00 AM, [address] [place] [address], [phone], Provider Name:Denise Terrazas, 11:30:00 AM, [address] [place] [address], [phone], Provider Name:Rogerio Prashanth, 06/16/2024 10:00:00 AM, [address] [place] [address], [phone], Insurance Providers Payer Name Payer Address Payer Phone Subscriber Number Group Number Insured Name Patient Relationship to Insured Coverage Start Date Coverage End Date Karen MARAVILLA [employer] [address] [address] [place] [address] [id number] YARITZA LO Self - patient is the insured 4 [employer] [facility] [address] [place] [address] [id number] YARITZA LO Self - patient is the insured 6 [employer] [facility] [facility] [address] [place] [address] [id number] [facility] YARITZA LO Self - patient is the insured 7 8 [employer] [facility] Full [address] [place] [address] [id number] YARITZA LO Self - patient is the insured 8 [facility] Dept 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 Surgical History Surgery Date(Month/Year) BTL renal bx 2012 No hx of breast surgery Hospitalization History Reason Date(Month/Year) abd pain/renal bx - [facility] 04/2012
[2024-01-17 13:00] VITALS: BP 156/77; PULSE 83; RESP 18; TEMP 37.1; O2SAT 97
[2024-01-17 13:56] VITALS: BMI 21.9
--- NOTE | 2024-01-17 15:22 | HO.PM.IMCN ---
History of Present Illness Data of Consult Service Date: 01/17/24 Primary Care Provider: Unknown Physician HPI Reason for consult: Admission H&P Pt is a 58-year-old Taishanese-speaking female with a PMH significant for?minimal change disease, cataracts, and MDD who is admitted to M5 psychiatry unit for increasing depression and hopelessness with SI attempt. Patient was apparently found ?dangling? from a 3rd story balcony after she reports she jumped from her 9th floor balcony in a suicide attempt. Per bystander report patient was scaling down from the 9th floor to the 3rd floor via the back and knees. Pt initially arrived to the hospital as an active trauma and received thorough medical evaluation which found superficial abrasions to extremities and scalp hematoma, but extensive imaging was negative for acute traumatic injury to head, chest, abdomen/pelvis, and cervical, thoracic, and lumbar spine. X-rays of left hand, left ankle, left elbow, and chest likewise negative. Patient also apparently had presented to [facility] ED the day prior complain of bilateral knee pain and a months long history of fatigue, decreased appetite, and weakness in legs and hands bilaterally. Patient repeated these claims at [facility], reportedly indicating she is not in pain but weak to the point where she is unable to hold objects, stand, or feed, shower, or care for herself. However, patient was noted to be self ambulatory without any evidence of gait disturbances or limitations secondary to pain or weakness. Medical consult for admission H&P. ?Patient's speaks a very specific Mandarin dialect that has proven difficult to get a medical chemist for. Nursing has indicated they have only spoken to the patient through an repatcher once before, and there appears to only be one such lamp shades supervisor via [employer] at one time. Nursing is currently are awaiting a call back when this lamp shades supervisor becomes available. Given significant translation barrier will defer patient interview and exam at this time. Patient is observed ambulating freely on the unit without any difficulties or limitations. Patient also has been observed getting into and out of bed without any difficulties or limitations secondary to pain or weakness. Review of Systems Review of Systems: Unable to obtain due to language barrier [facility] Medical History (Updated 01/17/24 @ 23:46 by MOISÉS Olson) Minimal change disease Social History Household Members: Spouse Housing: Apartment Do you presently have visiting nurse or other home services: No Patient Tobacco Use Status: Never used Tobacco Smoked in Last 30 Days: No e-Cigarette/Vaping Use: Never Used Use of substances other than those prescribed or required for medical reasons: No Currently Displaying Signs/Symptoms of Drug Intoxication Withdrawal: No Any prior treatment program specific to substance use: No Advance Directives: No Do you have a plan to hurt others: No Plan Recently lost weight without trying: No Nutrition Risks: No Nutritional Risk Patient : No : No Poor oral hygiene: No Meds Allergies Allergy/AdvReac Type Severity Reaction Status Date / Time No Known Allergies Allergy Verified 01/17/24 13:13 Active Medications: Current Medications Acetaminophen (Acetaminophen 325 Mg Tablet) 650 mg PO Q6H PRN PRN Reason: Headache/Pain Mild Scale (1-3) Al Hydroxide/Mg Hydroxide (Magnesium Hydrox/Alum Hydrox 30 Ml Oral.Susp) 30 ml PO Q6H PRN PRN Reason: Heartburn/Nausea Hydroxyzine HCl (Hydroxyzine Hcl 25 Mg Tablet) 25 mg PO Q6H PRN PRN Reason: Anxiety Magnesium Hydroxide (Milk Of Magnesia 30 Ml Oral.Susp) 30 ml PO DAILY PRN PRN Reason: Constipation Nicotine (Nicotine 21 Mg Patch.Td24) 21 mg TRANSDERMA DAILY PRN PRN Reason: smoking cessation Nicotine Polacrilex (Nicotine Polacrilex 2 Mg Gum) 4 mg BUCCAL Q2H PRN PRN Reason: Nicotine Cravings Olanzapine (Olanzapine 5 Mg Tablet) 5 mg PO TID PRN PRN Reason: agitation Trazodone HCl (Trazodone Hcl 50 Mg Tablet) 50 mg PO BEDTIME MRX1 PRN PRN Reason: Insomnia Home Medications ?Medication ?Instructions ?Recorded ?Confirmed ?Last Taken ?Type aripiprazole 5 mg tablet (Abilify) 5 mg PO DAILY 01/17/24 01/17/24 Unknown History escitalopram oxalate 5 mg tablet 5 mg PO DAILY 01/17/24 01/17/24 Unknown History fluoxetine 10 mg tablet 10 mg PO DAILY 01/17/24 01/17/24 Unknown History mirtazapine 45 mg tablet 45 mg PO BEDTIME 01/17/24 01/17/24 Unknown History Physical Exam Vital Signs and Narrative: Vital Signs: Last Vital Signs Temp 98.7 F 01/17/24 13:00 Pulse 83 01/17/24 13:00 Resp 18 01/17/24 13:00 BP 156/77 H 01/17/24 13:00 Pulse Ox 97 01/17/24 13:00 O2 Del Method Room Air 01/17/24 13:00 BMI result Body Mass Index 21.9 Physical examination deferred due to language barrier Results Labs 01/17/24 15:26 Assessment and Plan (1) Medical clearance for psychiatric admission: Status: Acute Plan Pt is a 58-year-old Taishanese-speaking female with a PMH significant for?minimal change disease, cataracts, and MDD who is admitted to M5 psychiatry unit for increasing depression and hopelessness with SI attempt. Medical consult for admission H&P. Interview and exam has been deferred due to significant language barrier and being unable to obtain a lamp shades supervisor for patient's very specific Mandarin dialect. Mood disorder Plan as per Psychiatry Generalized weakness Review of records indicates patient has complained of fatigue, decreased appetite, and weakness in legs and hands bilaterally for the past few months that has severely impacted her ADLs Patient be seen by PCP who started her on antidepressants Workup and labs at [facility] largely negative, including negative tox screen, CRP WNL at 0.4, though ESR elevated at 60 Patient noted at [facility], [facility], and here on the psych unit to be ambulating freely without limitations or gait disturbances Patient's symptoms likely psychogenic Will check TSH Patient has undergone extensive CT imaging of head, cervical spine, chest, abdomen/pelvis, thoracic spine, and lumbar spine, all of which have been negative for acute abnormalities If patient's symptoms persist, consider neurology consult Hx of minimal change disease Most likely experienced as a child Creatinine WNL UA negative for protein urea No further workup or treatment indicated at this time Patient otherwise has no known chronic medical conditions or acute medical complaints. Will sign off for now. Thank you for allowing us to participate in the care of this patient. Please re-consult if any acute issue or need arises.
[2024-01-17 16:00] LABS: Alanine Aminotransferase 20 U/L (0-31); Albumin Level 4.4 g/dL (3.5-5.0); Alkaline Phosphatase 85 U/L (39-117); Anion Gap 14 (12-20); Aspartate Amino Transferase 44 U/L (5-31); Bilirubin Total 0.7 mg/dL (0.0-1.0); Blood Urea Nitrogen 11 mg/dL (9-16); Carbon Dioxide 26 mmol/L (22-29); Chloride 107 mmol/L (96-108); Creatinine Clr Calc Pharmacy 56.6; Estimated Glomerular Filt Rate > 60; Glucose Random 119 mg/dL (60-115); Potassium 3.6 mmol/L (3.3-5.1); Sodium 143 mmol/L (135-145); Total Protein 7.9 g/dL (6.5-8.0)
--- NOTE | 2024-01-17 16:19 | PC.ADMIT ---
58 y/o Toisanese speaking female admitted to at 12:45 on a 12b from [facility] for increased depression and SI. Pt was recently seen at [facility] ED on 01/13 with c/o bilateral knee pain, fatigue, and decreased appetite. Pt was discharged from [facility] with a plan to f/u with PCP. On 01/14 pt was BIBA to [facility] after pt was found dangling from a 3rd story balcony after a bystander watched pt scale down from the ninth story. While at [facility] pt reported increased depression, SI with plan to jump off a bridge or to injest rat poison (which pt reported she has access to). Pt identified her precipitating factors as weakness, fatigue and insomnia. Pt reported symptoms started over the last 2-3 months. Pt lives with her , who pt stated had been assisting with her ADLs due to her self reported weakness. Pt moved to [place] in [place] and relies on her for support, as well as her daughter and son-in law who live separate from her. Per [facility], pt reported that pt's PCP prescribed antidepressant medication three weeks ago. It was reported that pt was compliant with taking medications, however was not feeling improvement. Per report, pt tried to call PCP after discharge from [facility] to inform them that she was not feeling any better, however when PCP did not answer her call pt became suicidal. While at [facility] a trauma workup was performed due to pt hanging from a balcony, which included xrays, and a CT of brain/cervical spine. Findings showed a left posterior parietal scalp hematoma, as well as abrasions to her upper and lower extremities. Pt was medicated at [facility] with Tylenol and Motrin on 01/15, and Protonix and Maalox on 01/16. While in ED, pt was not given any of her prescribed psych medications that included Abilify, Escitalopram, Fluoxetine, and Remeron. When pt arrived to , pt was noted to be a poor historian and did not understand reason for admission. Pt focused on feeling cold, and having weakness in her hands and feet. Pt wrapped herself up in a blanket during the interview. During attempts to ask about mental health, pt would interrupt and respond with My health is just so poor , I'm so weak , I cannot sleep . Pt shared that her symptoms began about two months ago. Pt adamantly denied any thoughts to harm herself, and denied any depression. Pt admitted to feeling high anxiety, but stated I'm not happy because of my health. Pt denied any hx of AVH, as well as any previous psych hx. Pt also denied taking any medications, or seeking help from a doctor for her depression. When asked how it came to be that she was dangling from a third story balcony, pt explained that she lived on the ninth floor and I wanted to climb down to see my friend. Pt explained that her friend lived on the second floor. Pt stated that she fell onto the third floor while attempting to make her way down to the second floor. When asked, pt stated that she had never previously done that, nor was she scared of getting hurt. Pt lacked insight into the risky behavior. Pt denied ETOH use, denied nicotine use, and refused an Influenza vaccine. Utox was negative. Pt gave verbal permission to call her daughter Trey Holt at [phone]. Daughter was called and updated on admission, as well as transferred to pt phone to speak with pt. Per daughter, pt complained recently of having no energy, no appetite, and weakness all over. Daughter unaware of any mental health issues, and was not aware of pt's recent complaints of depression and SI. Of note, while at [facility] a Cantonese taxi dancer was utilized due to not having access to a [employer] taxi dancer, and it was reported that pt was able to comprehend. However, when [employer] taxi dancer was initially unavailable to assist with M5 admission process, a Cantonese taxi dancer was utilized. However, the Cantonese taxi dancer reported difficulty understanding pt due to her distinct dialect. [employer] taxi dancer was difficult to reach, however was ultimately available to finish the admission process. Additionally pt only drinks hot beverages. Pt placed on 15 minute checks.
[2024-01-17 20:00] VITALS: BP 126/69; PULSE 82; RESP 16; TEMP 36.7; O2SAT 94
[2024-01-18 08:00] VITALS: BP 134/91; PULSE 98; RESP 16; TEMP 36.9; O2SAT 97
--- NOTE | 2024-01-18 10:16 | P.HPPS_ITS ---
HPI Date of Service: 01/18/24 Chief Complaint: SI;disorganized Sources of Information: patient interviewed, chart reviewed and crisis/core team assessment reviewed Additional Sources of Information: Daughter Carlyle Holt [phone]. Spoke with barrel lapper assistance. No concerns for SI for pt. Pt has reported her legs felt weak and poor sleep,appetite for 1-2 months. Reports feeling tired. Reports no hx of psychosis, substance use, no suicide attempts, inpt or out pt care. Lives with . Sees PCP June. Daughter has no worries for pt at the current time, wants her to discharge HPI Subjective Notes: Section 12B Healthcare Proxy: No Guardianship: No Medical Problems Affecting Mental Status: No Narrative: 58 yo Cantonese speaking female, reported hx of depression, cataracts and minimal change disease transfer from [facility]. Pt was found scaling her apartment building on the terrace, dangling from the third story balcony. She had a full trauma eval with [facility] and was cleared medically and from a trauma perspective. Team reports pt went to [facility] ER 01/13 reporting bilateral knee pain, fatigue and decrease in appetite. The plan was for her to follow up with PCP. PCP did not get back to her and thus the above actions. Pt tells [facility] team her legs are weak, she needs help, she is only sleeping 2-3 hours per night for 2-3 months, fatigue, weakness in legs and hands. Not pain, weakness. She has been unable to hold a bowl to self feed, shower, stand at the sink to wash, walk or provide self care. She tells team memory has declined as well and she feels hopeless. She states she has contemplated suicide for a few weeks with plan to jump from a balcony or ingest rat poison which she has access to. Tells team she jumped from the ninth to the third floor. She tells team she wants to be , endorsed depressed mood, insomnia, appetite decrease, anhedonia, worry. Tells team that PCP gave her antidepressants ~3 weeks ago-Abilify,Lexapro,Remeron, Prozac Today, with two interpreters, she reports her knees are tired as is her entire body and she is cold. She denies SI, states she scaled the building to go a visit a friend and to get exercise. She reports a little depression due to body discomfort. She asks for discharge today as it is too loud here, she cannot sleep, wants Uzbek food. She acknowledges fear, without ability to say of what, clarifies that she is not in pain but is tired and has felt like this for years. Past Psychiatric History: Denies Recently started on Abilify, Lexapro, Prozac, Remeron Medical Evaluation Reviewed: Yes [facility] Medical History (Updated 01/18/24 @ 15:09 by Laney Petersen, HEDIS SPECIALIST) Minimal change disease Family History: Denies Social History: To [facility] in 2009 Lives with Supportive daughter and son in law Substance History: Denies Trauma History: Pt does not discuss Diagnostics Vital Signs (24Hr): Vital Signs - 24 hr 01/17/24 13:00 01/17/24 20:00 Temperature 98.7 F 98.1 F Pulse Rate 83 82 Respiratory Rate 18 16 Blood Pressure 156/77 H 126/69 Pulse Oximetry 97 94 Oxygen Delivery Method Room Air Room Air BMI result Body Mass Index 21.9 Trauma eval at [facility] negative CBCD WNL Creatinine 0.77 (0.5-1.1) GFR 88 (>59) BUN 10 (7-25_ CRP 0.4 Tox negative ESR 60 Labs 01/17/24 15:26 Labs: Laboratory Results - last 48 hr 01/17/24 01/17/24 15:26 15:40 Hold Purple Top SEE NOTE Sodium 143 Potassium 3.6 Chloride 107 Carbon Dioxide 26 Anion Gap 14 BUN 11 Creatinine 0.72 Estim Creat Clear Calc 56.6 Estimated GFR > 60 Random Glucose 119 H Calcium 10.0 Total Bilirubin 0.7 AST 44 H ALT 20 Alkaline Phosphatase 85 Total Protein 7.9 Albumin 4.4 Imaging Radiology Impressions: 4 mm RLL pulmonary nodule Right side Bartholin Cyst CT Brain -No acute findings Meds/Allergies Meds Home Medications ?Medication ?Instructions ?Recorded ?Confirmed ?Type aripiprazole 5 mg tablet (Abilify) 5 mg PO DAILY 01/17/24 01/17/24 History escitalopram oxalate 5 mg tablet 5 mg PO DAILY 01/17/24 01/17/24 History fluoxetine 10 mg tablet 10 mg PO DAILY 01/17/24 01/17/24 History mirtazapine 45 mg tablet 45 mg PO BEDTIME 01/17/24 01/17/24 History Allergies Allergies Allergy/AdvReac Type Severity Reaction Status Date / Time No Known Allergies Allergy Verified 01/17/24 13:13 Mental Status Exam Mental Status Exam Patient Appearance: Fatigued Patient Orientation: Person and Place Level of Consciousness: Alert Patient Behavior: Appropriate, Talkative, Cooperative, Distractible, Confused and Good Eye Contact Mood Description: Anxious and Apprehensive Affect Description: Anxious and Apprehensive Patient Cognition Impaired: Yes Ability to Follow Directions: Fair Speech Pattern: Difficulty Finding Words and Spontaneous Speech Memory Description: Episodic Impaired Hallucinations: None Delusions: Not Present and Present (has fear, but cannot give details) Thought Process: Rumination Thought Content: positive for Circumstantial, positive for Tangential and positive for Suicidal Ideation (denies today, affirms at [facility] with plan, intent and action) Depressive Symptoms: Insomnia, Difficulty Sleeping, Changes in Appetite, Increased Fatigue and Loss of Energy Abnormal Motor Activity Signs and Symptoms: Restlessness Judgement: Poor Assessment & Plan Assessment & Plan (1) Depression: Status: Acute Code(s): F32.A - Depression, unspecified (2) Mild cognitive impairment: Status: Acute Code(s): G31.84 - Mild cognitive impairment of uncertain or unknown etiology Plan Depression, Possible MCI. Pt has been on 3 antidepressants for 3 weeks plus Abilify augment-?response to excess Serotonin. Plan: Admit, Section 12B, 15 minute checks Collateral Contact Diagnostics DC Abilify, Remeron, Lexapro Continue Prozac Lidocaine patches to knees prn Capsaicin prn B12,Folate, Iron Profile Patient educated on: therapeutic strategies, medical condition and other Reason for continued inpatient stay Substantial Risk for: rapid decompensation Statement Statement: I have reviewed the history and physical and performed a pertinent examination on my patient. No changes have occurred unless specified. If the History and Physical was not performed prior to admission, the Hospitalist's service will be consulted for completing the admission physical. Time Spent With Patient Time: Total time managing care of this patient today ____ minutes.
[2024-01-18] MEDS: Lidocaine 4 % Patch ADH..PATCH 2 PATCH TRANSDERMA (11:53)
[2024-01-18] MEDS: FLUoxetine HCl Oral Solution 20 MG/5 ML SOLUTION 10 MG PO (13:38)
--- NOTE | 2024-01-18 14:00 | MHC.CLN ---
NUTRITION CONSULT FOR CULTURAL FOOD PREFERENCES. BEHAVIORAL HEALTH AID ABLE TO COMMUNICATE WITH PATIENT. MINIMAL INFO PROVIDED BY PATIENT. STAFF REPORTS THAT PATIENT ATE WELL AT LUNCH TODAY. NO ADDITIONAL NUTRITION INTERVENTIONS AT THIS TIME.
[2024-01-18 20:00] VITALS: BP 120/67; PULSE 81; TEMP 36.6; O2SAT 94
[2024-01-19 08:00] VITALS: BP 135/84; PULSE 95; RESP 16; TEMP 36.6; O2SAT 99
[2024-01-19 08:20] LABS: Iron 72 mcg/dL (30-160); Percent Iron Saturation 25 % (15-50); Total Iron Binding Capacity 293 mcg/dL (228-428); Unsaturated Iron Binding 221 ug/dL
[2024-01-19 08:55] LABS: Folate 13.9 ng/mL (> or = 4.0); Vitamin B12 452 pg/mL (200-900)
[2024-01-19] MEDS: FLUoxetine HCl 10 MG CAPSULE PO (09:32)
[2024-01-19] MEDS: Lidocaine 4 % Patch ADH..PATCH 2 PATCH TRANSDERMA (09:36)
--- NOTE | 2024-01-19 10:22 | HO.PSYCHPN ---
Subjective Subjective Date of Service: 01/19/24 Reason For Visit: SI;disorganized Interim History: Interviewed with Mandarin speaking staff. Patient is minimally verbal today. Has been getting up and out of bed in the milieu. Not eating food. Is drinking hot water. Continues to remain somatically preoccupied. very reluctant to take any medications and fully engage in interview. Does have hopelessness and thoughts of , but no active SI. Medication Compliance: No Side effects from medications: No Attending Groups: No Review of Systems Acute medical concerns: No Review of Systems Review of Systems Fatigue, tired, knee pain described Mental Status Exam Mental Status Exam Patient Appearance: Fatigued Patient Orientation: Person and Place Level of Consciousness: Alert Patient Behavior: Appropriate, Passive and Poor Eye Contact Mood Description: Withdrawn, Anxious and Apprehensive Affect Description: Anxious and Apprehensive Patient Cognition Impaired: Yes Ability to Follow Directions: Fair Speech Pattern: Difficulty Finding Words and Spontaneous Speech Memory Description: Episodic Impaired Diagnostics Vital Signs (24Hr): Vital Signs - 24 hr 01/18/24 20:00 01/19/24 08:00 Temperature 97.8 F 97.8 F Pulse Rate 81 95 Respiratory Rate 16 Blood Pressure 120/67 135/84 Pulse Oximetry 94 99 Oxygen Delivery Method Room Air Room Air BMI result Body Mass Index 21.9 Labs 01/17/24 15:26 Labs: Laboratory Results - last 48 hr 01/17/24 01/17/24 01/19/24 15:26 15:40 08:00 Hold Purple Top SEE NOTE Sodium 143 Potassium 3.6 Chloride 107 Carbon Dioxide 26 Anion Gap 14 BUN 11 Creatinine 0.72 Estim Creat Clear Calc 56.6 Estimated GFR > 60 Random Glucose 119 H Calcium 10.0 Iron 72 TIBC 293 % Saturation 25 Unsat Iron Binding 221 Total Bilirubin 0.7 AST 44 H ALT 20 Alkaline Phosphatase 85 Total Protein 7.9 Albumin 4.4 Vitamin B12 452 Folate 13.9 Medications Medications Current Medications Acetaminophen (Acetaminophen 325 Mg Tablet) 650 mg PO Q6H PRN PRN Reason: Headache/Pain Mild Scale (1-3) Al Hydroxide/Mg Hydroxide (Magnesium Hydrox/Alum Hydrox 30 Ml Oral.Susp) 30 ml PO Q6H PRN PRN Reason: Heartburn/Nausea Artificial Tears (Artificial Tears 15 Ml Drops) 2 drop EYE-BOTH Q4H PRN PRN Reason: Dry Eyes Capsaicin (Capsaicin 0.025% Cream 60 Gm Tube) 1 appl TOPICAL QID PRN; Protocol PRN Reason: Pain, Mild (Pain Scale 1-3) Fluoxetine HCl (Fluoxetine Hcl 10 Mg Capsule) 10 mg PO DAILY COUNTS INCLUDE 234 BEDS AT THE [facility] Last Admin: 01/19/24 09:32 Dose: 10 mg Hydroxyzine HCl (Hydroxyzine Hcl 25 Mg Tablet) 25 mg PO Q6H PRN PRN Reason: Anxiety Lidocaine (Lidocaine 4 % Patch Adh..Patch) 2 patch TRANSDERMA DAILY SUSAN; Protocol Last Admin: 01/19/24 09:36 Dose: 2 patch Lorazepam (Lorazepam 0.5 Mg Tablet) 0.5 mg PO TID PRN PRN Reason: Anxiety Magnesium Hydroxide (Milk Of Magnesia 30 Ml Oral.Susp) 30 ml PO DAILY PRN PRN Reason: Constipation Nicotine (Nicotine 21 Mg Patch.Td24) 21 mg TRANSDERMA DAILY PRN PRN Reason: smoking cessation Nicotine Polacrilex (Nicotine Polacrilex 2 Mg Gum) 4 mg BUCCAL Q2H PRN PRN Reason: Nicotine Cravings Olanzapine (Olanzapine 5 Mg Tablet) 5 mg PO TID PRN PRN Reason: agitation Trazodone HCl (Trazodone Hcl 50 Mg Tablet) 50 mg PO BEDTIME MRX1 PRN PRN Reason: Insomnia Allergies Allergies Allergy/AdvReac Type Severity Reaction Status Date / Time No Known Allergies Allergy Verified 01/17/24 13:13 Assessment & Plan Assessment & Plan (1) Depression: Status: Acute Code(s): F32.A - Depression, unspecified (2) Mild cognitive impairment: Status: Acute Code(s): G31.84 - Mild cognitive impairment of uncertain or unknown etiology Plan Depression, Possible MCI. Pt has been on 3 antidepressants for 3 weeks plus Abilify augment-?response to excess Serotonin. Plan: Admit, Section 12B, 15 minute checks Collateral Contact Diagnostics DC Abilify, Remeron, Lexapro Continue Prozac Lidocaine patches to knees prn Capsaicin prn B12,Folate, Iron Profile 01/18: no changes. continue to encourage med adherence and PO intake. Iron, B12 and folate all unremarkable Reason for continued inpatient stay Substantial Risk for: inability to function Time Spent With Patient Time: Total time managing care of this patient today ____ minutes.
[2024-01-19 19:57] VITALS: BP 128/75; PULSE 86; TEMP 36.7; O2SAT 96
[2024-01-20 08:00] VITALS: BP 129/81; PULSE 111; RESP 16; TEMP 36.4; O2SAT 98
[2024-01-20] MEDS: FLUoxetine HCl 10 MG CAPSULE PO (09:21)
--- NOTE | 2024-01-20 10:31 | P.PNPSI_ITS ---
Subjective Subjective Date of Service: 01/20/24 Reason For Visit: SI;disorganized Medical Problems Affecting Mental Status: No Interim History: Interviewed with Mandarin speaking staff. Much brighter and engaged today. Deneid depression, SI or HI. Denied AH. No overt psychosis noted. Ref admission circumstances and climbing down floors I was exercising - able to smile/laugh ref same and reports will not do that again. Also unable to clearly explain rationale behind doing it in [facility]. Eating and drinking today. Accepting meds without issue. Medication Compliance: Yes Side effects from medications: No Attending Groups: No Review of Systems Acute medical concerns: No Review of Systems Review of Systems Fatigue, tired, knee pain described Mental Status Exam Mental Status Exam Patient Appearance: Appropriate Patient Orientation: Person, Place and Time Level of Consciousness: Awake and Appropriate Patient Behavior: Appropriate Mood Description: Calm Affect Description: Calm and Cheerful Patient Cognition Impaired: No Ability to Follow Directions: Good Speech Pattern: Clear Memory Description: Intact Hallucinations: None Delusions: Not Present Thought Process: Intact Thought Content: positive for Intact Judgement: Fair Diagnostics Vital Signs (24Hr): Vital Signs - 24 hr 01/19/24 19:57 01/20/24 08:00 Temperature 98.1 F 97.6 F Pulse Rate 86 111 H Respiratory Rate 16 Blood Pressure 128/75 129/81 Pulse Oximetry 96 98 Oxygen Delivery Method Room Air Room Air BMI result Body Mass Index 21.9 Labs 01/17/24 15:26 Labs: Laboratory Results - last 48 hr 01/19/24 08:00 Iron 72 TIBC 293 % Saturation 25 Unsat Iron Binding 221 Vitamin B12 452 Folate 13.9 Medications Medications Current Medications Acetaminophen (Acetaminophen 325 Mg Tablet) 650 mg PO Q6H PRN PRN Reason: Headache/Pain Mild Scale (1-3) Al Hydroxide/Mg Hydroxide (Magnesium Hydrox/Alum Hydrox 30 Ml Oral.Susp) 30 ml PO Q6H PRN PRN Reason: Heartburn/Nausea Artificial Tears (Artificial Tears 15 Ml Drops) 2 drop EYE-BOTH Q4H PRN PRN Reason: Dry Eyes Capsaicin (Capsaicin 0.025% Cream 60 Gm Tube) 1 appl TOPICAL QID PRN; Protocol PRN Reason: Pain, Mild (Pain Scale 1-3) Fluoxetine HCl (Fluoxetine Hcl 10 Mg Capsule) 10 mg PO DAILY [facility] Last Admin: 01/20/24 09:21 Dose: 10 mg Hydroxyzine HCl (Hydroxyzine Hcl 25 Mg Tablet) 25 mg PO Q6H PRN PRN Reason: Anxiety Lidocaine (Lidocaine 4 % Patch Adh..Patch) 2 patch TRANSDERMA DAILY [facility]; Protocol Last Admin: 01/20/24 09:22 Dose: Not Given Lorazepam (Lorazepam 0.5 Mg Tablet) 0.5 mg PO TID PRN PRN Reason: Anxiety Magnesium Hydroxide (Milk Of Magnesia 30 Ml Oral.Susp) 30 ml PO DAILY PRN PRN Reason: Constipation Nicotine (Nicotine 21 Mg Patch.Td24) 21 mg TRANSDERMA DAILY PRN PRN Reason: smoking cessation Nicotine Polacrilex (Nicotine Polacrilex 2 Mg Gum) 4 mg BUCCAL Q2H PRN PRN Reason: Nicotine Cravings Olanzapine (Olanzapine 5 Mg Tablet) 5 mg PO TID PRN PRN Reason: agitation Trazodone HCl (Trazodone Hcl 50 Mg Tablet) 50 mg PO BEDTIME MRX1 PRN PRN Reason: Insomnia Allergies Allergies Allergy/AdvReac Type Severity Reaction Status Date / Time No Known Allergies Allergy Verified 01/17/24 13:13 Assessment & Plan Assessment & Plan (1) Depression: Status: Acute Code(s): F32.A - Depression, unspecified (2) Mild cognitive impairment: Status: Acute Code(s): G31.84 - Mild cognitive impairment of uncertain or unknown etiology Plan Depression, Possible MCI. Pt has been on 3 antidepressants for 3 weeks plus Abilify augment-?response to excess Serotonin. Plan: Admit, Section 12B, 15 minute checks Collateral Contact Diagnostics FAVIO Jc Remeron, Lexapro Continue Prozac Lidocaine patches to knees prn Capsaicin prn B12,Folate, Iron Profile 01/18: no changes. continue to encourage med adherence and PO intake. Iron, B12 and folate all unremarkable 01/19: no changes Reason for continued inpatient stay Substantial Risk for: harm to self Time Spent With Patient Time: Total time managing care of this patient today ____ minutes.
[2024-01-20 20:00] VITALS: BP 98/58; PULSE 82; RESP 15; TEMP 36.6; O2SAT 100
[2024-01-21 08:00] VITALS: BP 107/69; PULSE 113; RESP 18; TEMP 36.2; O2SAT 98
[2024-01-21] MEDS: FLUoxetine HCl 10 MG CAPSULE PO (09:07)
--- NOTE | 2024-01-21 09:49 | HO.PSYCHPN ---
Subjective Subjective Date of Service: 01/21/24 Reason For Visit: SI;disorganized Subjective Notes: Section 12B Healthcare Proxy: No Guardianship: No Medical Problems Affecting Mental Status: No Interim History: Met with pt, educational sign language interpreter and Kd DODD. Pt's educational sign language interpreter has an exemplary alliance with her and has been a great support throughout her admission. Discussed events prior to admission. Pt was asked about her decision making to scale her apartment building. She states she did it for exercise She reports she feels cold, her feet have no blood in them and are cold and her body is cold. She is unable to discuss her rationale for events prior to admission. She denies SI and asks to go home. She tells team she feels improved on meds. Elder Services has not returned teams call regarding their investigation. Medication Compliance: Yes Side effects from medications: No Attending Groups: No Review of Systems Acute medical concerns: No Medical Review of Systems: unchanged Review of Systems Review of Systems feeling cold today eyes are tired Mental Status Exam Mental Status Exam Patient Appearance: Appropriate Patient Orientation: Person and Place Level of Consciousness: Alert Patient Behavior: Talkative and Good Eye Contact Mood Description: Constricted Affect Description: Constricted Ability to Follow Directions: Good Speech Pattern: Spontaneous Speech Memory Description: Episodic Impaired Hallucinations: None Thought Process: Illogical and Distracted Thought Content: positive for Circumstantial Depressive Symptoms: Thoughts of /Suicide (denies) Judgement: Poor Diagnostics Vital Signs (24Hr): Vital Signs - 24 hr 01/20/24 20:00 01/21/24 08:00 Temperature 97.8 F 97.1 F Pulse Rate 82 113 H Respiratory Rate 15 18 Blood Pressure 98/58 L 107/69 Pulse Oximetry 100 98 Oxygen Delivery Method Nasal Cannula BMI result Body Mass Index 21.9 Labs 01/17/24 15:26 Medications Medications Current Medications Acetaminophen (Acetaminophen 325 Mg Tablet) 650 mg PO Q6H PRN PRN Reason: Headache/Pain Mild Scale (1-3) Al Hydroxide/Mg Hydroxide (Magnesium Hydrox/Alum Hydrox 30 Ml Oral.Susp) 30 ml PO Q6H PRN PRN Reason: Heartburn/Nausea Artificial Tears (Artificial Tears 15 Ml Drops) 2 drop EYE-BOTH Q4H PRN PRN Reason: Dry Eyes Capsaicin (Capsaicin 0.025% Cream 60 Gm Tube) 1 appl TOPICAL QID PRN; Protocol PRN Reason: Pain, Mild (Pain Scale 1-3) Fluoxetine HCl (Fluoxetine Hcl 10 Mg Capsule) 10 mg PO DAILY [facility] Last Admin: 01/21/24 09:07 Dose: 10 mg Hydroxyzine HCl (Hydroxyzine Hcl 25 Mg Tablet) 25 mg PO Q6H PRN PRN Reason: Anxiety Lidocaine (Lidocaine 4 % Patch Adh..Patch) 2 patch TRANSDERMA DAILY [facility]; Protocol Last Admin: 01/21/24 08:15 Dose: Not Given Lorazepam (Lorazepam 0.5 Mg Tablet) 0.5 mg PO TID PRN PRN Reason: Anxiety Magnesium Hydroxide (Milk Of Magnesia 30 Ml Oral.Susp) 30 ml PO DAILY PRN PRN Reason: Constipation Nicotine (Nicotine 21 Mg Patch.Td24) 21 mg TRANSDERMA DAILY PRN PRN Reason: smoking cessation Nicotine Polacrilex (Nicotine Polacrilex 2 Mg Gum) 4 mg BUCCAL Q2H PRN PRN Reason: Nicotine Cravings Olanzapine (Olanzapine 5 Mg Tablet) 5 mg PO TID PRN PRN Reason: agitation Trazodone HCl (Trazodone Hcl 50 Mg Tablet) 50 mg PO BEDTIME MRX1 PRN PRN Reason: Insomnia Allergies Allergies Allergy/AdvReac Type Severity Reaction Status Date / Time No Known Allergies Allergy Verified 01/17/24 13:13 Assessment & Plan Assessment & Plan (1) Depression: Status: Acute Code(s): F32.A - Depression, unspecified (2) Mild cognitive impairment: Status: Acute Code(s): G31.84 - Mild cognitive impairment of uncertain or unknown etiology Plan Depression, Possible MCI. Pt has been on 3 antidepressants for 3 weeks plus Abilify augment-?response to excess Serotonin. Plan: Admit, Section 12B, 15 minute checks Collateral Contact Diagnostics DC Abilify, Remeron, Lexapro Continue Prozac Lidocaine patches to knees prn Capsaicin prn B12,Folate, Iron Profile 01/18: no changes. continue to encourage med adherence and PO intake. Iron, B12 and folate all unremarkable 01/19: no changes 01/20: MRI Brain Continue antidepressant Section 7 to be filed on 01/21. Reason for continued inpatient stay Substantial Risk for: rapid decompensation and med/psych decompensation Time Spent With Patient Time: Total time managing care of this patient today ____ minutes.
--- NOTE | 2024-01-21 18:47 | PC.NURSE ---
MRI Screening: Danielle has an order for MRI and needs to complete the screening form, however, this is difficult to complete accurately even for some venetie ira speakers. We tried to engage her with a translated form, but she states that she cannot read it. Her daughter also requires a breaker operator to speak to us and does not seem to know much about Danielle's medical history. When discussing with flight test data acquisition technician Fay Cohen it was noted that we not only will need to get the information about safety of the testing, but ensure patient buy in because a brain MRI is very loud, will take 20+ mins, and the patient will have to be compliant with staying perfectly still throughout while wearing a weird helmet. On multiple reapproach attempts throughout the evening Danielle was in bed refusing to engage in any way. The plan is to take advantage of her pattern of being most active in the morning to have her work through the screening form with the [place] and discuss expectations for the exam. If she wants to do the MRI and is unable to complete the screening we could also x-ray her to ensure MRI safety.
[2024-01-22 08:00] VITALS: BP 110/66; PULSE 98; RESP 16; TEMP 36.3; O2SAT 98
[2024-01-22] MEDS: FLUoxetine HCl 10 MG CAPSULE PO (08:59)
--- NOTE | 2024-01-22 09:15 | PC.NURSE ---
Insulation Helper attempted to complete MRI screening form with pt using interpreting services device. However, automobile and property underwriter unable to review testing and complete form with patient due to no available translators at time of call.
--- NOTE | 2024-01-22 11:05 | PC.NURSE ---
Interpreting service call successfully made with Toisanese speaking recruiter account manager Delia ([phone]). Pt educated on new orders for Xrays and MRI imaging, including rationale for testing, and what pt would expect to experience during imaging. Pt refused all imaging, and stated she would not allow testing. Provider made aware.
--- NOTE | 2024-01-22 17:09 | HO.PSYCHPN ---
Subjective Subjective Date of Service: 01/22/24 Reason For Visit: SI;disorganized Subjective Notes: Section 7 (filed today-seen by her real estate attorney assigned) and Section 12B Healthcare Proxy: No Guardianship: No Medical Problems Affecting Mental Status: No Interim History: Pt refused diagnostics for dementia eval. Tells team that her brain is fine but legs are weak, she is cold with no blood supply to her legs. She reports starving here, not having proper food, not having enough check ins, not being asked how she is and feels this to be punishment. She cries and has intermittent agiation. Family is in [place]. Lining Cementer is via internet. Care reviewed with daughter and team-Chelsea Silver RN who has been with pt all day and Kd DODD along with healthcare interpreter. Daughter reports she would like to bring pt home. She is currently unemployed and could care for her around the clock and states pt's other daughter could help as well. Daughter believes pt's needs will be better met at home with family caring for her vs being in hospital where she is frightened. Daughter verbalized understanding of precipitants to admission and involvement of Elder Services. Daughter plans to bring pt [place] [facility] [place] full physical eval of her symptoms which initiated current crisis prior to admission. Daughter will come to [facility] to bring pt home on 01/22. She will come via [employer] so she can attend to pt fully on their way home. Pt is pleased with this plan. Medication Compliance: Yes Side effects from medications: No Attending Groups: No Review of Systems Acute medical concerns: No Review of Systems Review of Systems as noted in HPI. Mental Status Exam Mental Status Exam Patient Appearance: Fatigued and Appropriate Patient Orientation: Person and Place Level of Consciousness: Alert Patient Behavior: Talkative, Restless, Anxious, Distractible, Good Eye Contact and Uncooperative Mood Description: Anxious, Nervous and Apprehensive Affect Description: Anxious, Nervous and Apprehensive Patient Cognition Impaired: Yes Ability to Follow Directions: Fair Speech Pattern: Spontaneous Speech Memory Description: Episodic Impaired Hallucinations: None Delusions: Not Present Thought Process: Confusion Thought Content: positive for Suicidal Ideation (denies) Depressive Symptoms: Increased Anxiety, Muscle Pain, Hopelessness, Unhappiness, Increased Fatigue, Thoughts of /Suicide (denies) and Loss of Energy Judgement: Fair Diagnostics Vital Signs (24Hr): Vital Signs - 24 hr 01/22/24 08:00 Temperature 97.4 F Pulse Rate 98 Respiratory Rate 16 Blood Pressure 110/66 Pulse Oximetry 98 Oxygen Delivery Method Room Air BMI result Body Mass Index 21.9 Labs 01/17/24 15:26 Medications Medications Current Medications Acetaminophen (Acetaminophen 325 Mg Tablet) 650 mg PO Q6H PRN PRN Reason: Headache/Pain Mild Scale (1-3) Al Hydroxide/Mg Hydroxide (Magnesium Hydrox/Alum Hydrox 30 Ml Oral.Susp) 30 ml PO Q6H PRN PRN Reason: Heartburn/Nausea Artificial Tears (Artificial Tears 15 Ml Drops) 2 drop EYE-BOTH Q4H PRN PRN Reason: Dry Eyes Capsaicin (Capsaicin 0.025% Cream 60 Gm Tube) 1 appl TOPICAL QID PRN; Protocol PRN Reason: Pain, Mild (Pain Scale 1-3) Fluoxetine HCl (Fluoxetine Hcl 10 Mg Capsule) 10 mg PO DAILY [facility] Last Admin: 01/22/24 08:59 Dose: 10 mg Hydroxyzine HCl (Hydroxyzine Hcl 25 Mg Tablet) 25 mg PO Q6H PRN PRN Reason: Anxiety Lidocaine (Lidocaine 4 % Patch Adh..Patch) 2 patch TRANSDERMA DAILY [facility]; Protocol Last Admin: 01/22/24 09:00 Dose: Not Given Lorazepam (Lorazepam 0.5 Mg Tablet) 0.5 mg PO TID PRN PRN Reason: Anxiety Magnesium Hydroxide (Milk Of Magnesia 30 Ml Oral.Susp) 30 ml PO DAILY PRN PRN Reason: Constipation Nicotine (Nicotine 21 Mg Patch.Td24) 21 mg TRANSDERMA DAILY PRN PRN Reason: smoking cessation Nicotine Polacrilex (Nicotine Polacrilex 2 Mg Gum) 4 mg BUCCAL Q2H PRN PRN Reason: Nicotine Cravings Olanzapine (Olanzapine 5 Mg Tablet) 5 mg PO TID PRN PRN Reason: agitation Trazodone HCl (Trazodone Hcl 50 Mg Tablet) 50 mg PO BEDTIME MRX1 PRN PRN Reason: Insomnia Allergies Allergies Allergy/AdvReac Type Severity Reaction Status Date / Time No Known Allergies Allergy Verified 01/17/24 13:13 Assessment & Plan Assessment & Plan (1) Depression: Status: Acute Code(s): F32.A - Depression, unspecified (2) Mild cognitive impairment: Status: Acute Code(s): G31.84 - Mild cognitive impairment of uncertain or unknown etiology Plan Depression, Possible MCI. Pt has been on 3 antidepressants for 3 weeks plus Abilify augment-?response to excess Serotonin. Plan: Admit, Section 12B, 15 minute checks Collateral Contact Diagnostics DC Abilify, Remeron, Lexapro Continue Prozac Lidocaine patches to knees prn Capsaicin prn B12,Folate, Iron Profile 01/18: no changes. continue to encourage med adherence and PO intake. Iron, B12 and folate all unremarkable 01/19: no changes 01/20: MRI Brain Continue antidepressant Section 7 to be filed on 01/21. 01/21: Section 7 filed Able to connect with daughter after filing, daughter reports she would like to assume care of pt and proceed with OP medical eval and psychiatric follow up. As pt is uncomfortable in hospital, has minimal resources to communicate, has a care program at home that is culturally in place for her, seems to present with MCI sx and is more agitated being so far away from her family, daughter will come to take pt home on 01/22. Reason for continued inpatient stay Substantial Risk for: rapid decompensation and med/psych decompensation Time Spent With Patient Time: Total time managing care of this patient today ____ minutes.
[2024-01-23 08:00] VITALS: BP 133/78; PULSE 76; RESP 16; TEMP 36.6; O2SAT 100
[2024-01-23] MEDS: FLUoxetine HCl 10 MG CAPSULE PO (08:47)
--- NOTE | 2024-01-23 14:23 | PM.PSYDC ---
DS: Providers Provider Date of admission: 01/17/24 12:25 Primary care physician: Unknown Physician Consults: 01/17/24 13:55 Consult to Hospitalist Routine Comment: Consulting Provider: [facility] Reason For Exam: admission physical DS: Diagnosis Discharge Diagnosis (1) Depression: Status: Acute (2) Mild cognitive impairment: Status: Acute DS: Medications Discharge Medications Home Medications: Previous Rx's ?Medication ?Instructions ?Recorded fluoxetine 10 mg tablet 10 mg PO DAILY #30 tabs 01/22/24 lidocaine 4 % topical patch 2 patch transdermal DAILY #30 ea 01/22/24 (Lidocaine Pain Relief) Data Data Completed and Pending Completed studies during hospitalization [Text1]: 01/17/24 01/17/24 01/19/24 15:26 15:40 08:00 Hold Purple Top SEE NOTE Sodium 143 Potassium 3.6 Chloride 107 Carbon Dioxide 26 Anion Gap 14 BUN 11 Creatinine 0.72 Estim Creat Clear Calc 56.6 Estimated GFR > 60 Random Glucose 119 H Calcium 10.0 Iron 72 TIBC 293 % Saturation 25 Unsat Iron Binding 221 Total Bilirubin 0.7 AST 44 H ALT 20 Alkaline Phosphatase 85 Total Protein 7.9 Albumin 4.4 Vitamin B12 452 Folate 13.9 DS: Summary Time Spent with Patient Time attestation: Total time managing care of this patient today ____ minutes. Discharge Plan Discharge Anticipated Discharge Date/Time: 01/23/24 12:00 Patient Disposition: Home, Self-Care Discharge Diagnosis: MCI Depression Referrals: [facility]: Vi Villegas (clinician) [Other] - 1 Week (Information for [facility] You should contact the agency after discharge) [facility] [Other] - 1 Week (Information for [facility] Services Sunday, Sunday, Sunday, , Sunday from 8:00 AM from 8:00 PM for ALL age group(s) Sunday, Sunday from 9:00 AM from 5:00 PM for ALL age group(s)) Physician,Unknown J [Primary Care Provider] - 1 Week (Pt declined to sign release for PCP. ) Discharge Medications: New lidocaine [Lidocaine Pain Relief] 4 % Adhesive Patch,Medicated 2 patch transdermal DAILY Qty: 30 0RF Protocol: Apply to: Apply to: knees Continued fluoxetine 10 mg Tablet 10 mg PO DAILY Qty: 30 0RF Discontinued mirtazapine [Remeron] 45 mg Tablet 45 mg PO BEDTIME aripiprazole [Abilify] 5 mg Tablet 5 mg PO DAILY escitalopram oxalate 5 mg Tablet 5 mg PO DAILY Discharge Orders: Discharge Order (Routine); Ordered 01/23/24 Ordered By: Laney Petersen Diet: Advance to usual diet Activity on Discharge: As tolerated Stand Alone Forms: Patient Portal Discharge page, Community Support Print Language: Macanese - Traditional Care Plan Goals: Mood and Behavioral Stabilization Health Concerns: Mood and Behavioral Stabilization Plan of Treatment: Your daughter will provide twenty four hour care for you upon discharge. Your daughter will arrange follow up medical and psychiatric care for you in your home community. Discharge Date/Time: 01/23/24 11:15
== END 2024-01-23 11:15 | disposition home or self-care (01) | DRG 754 ==
PROVIDERS: Psychiatry & Neurology Psychiatry; Admitting Provider Clinical Nurse Specialist Psychiatric/Mental Health, Adult; Visit Provider Clinical Nurse Specialist Psychiatric/Mental Health, Adult
DX: F32.A Depression, unspecified (principal); R45.851 Suicidal ideations; G31.84 Mild cognitive impairment of uncertain or unknown etiology; Z79.899 Other long term (current) drug therapy
CPT/HCPCS: 36415; 80053; 82607; 82746; 83540

== ENCOUNTER → 2024-01-17 12:25 | Outpatient (BNV) | payer OTHER, SELFPAY | PROVIDERS: Admitting Provider Clinical Nurse Specialist Psychiatric/Mental Health, Adult; Visit Provider Psychiatry & Neurology Psychiatry | DX: F32.2 Major depressive disorder, single episode, severe without psychotic features (principal); G31.84 Mild cognitive impairment of uncertain or unknown etiology | CPT/HCPCS: 90792; 99231; 99232 ==

== ENCOUNTER → 2024-01-17 12:25 | Outpatient (BNV) | payer OTHER, SELFPAY | PROVIDERS: Admitting Provider Clinical Nurse Specialist Psychiatric/Mental Health, Adult; Visit Provider Student in an Organized Health Care Education/Training Program | DX: Z00.8 Encounter for other general examination (principal) | CPT/HCPCS: 99429 ==